=== PATIENT | female | born 1980 | race Caucasian/White ===

== ENCOUNTER → 2019-01-23 15:34 | Outpatient (CLI) | payer OTHER, SELFPAY ==
--- NOTE | 2019-01-23 | IMM_PTH ---
PATIENT: SANGEETA CARMONA LOC: [facility] U#:[id number] AGE/SX: 44/F ROOM: RE01/23/[address]: Dr. Nithin Alba MD : 1980 BED: DIS: SPEC #: [id number] RECD: 01/27/19 11:19 STATUS: DAISY MICHAEL #: [id number] GRACE: 01/23/19 00:[address]: Nithin Alba DEPT: IMMUNOHISTOCHEMISTRY RECD BY: Mariela Morgan ENTERED: 01/27/19 11:20 SP TYPE: IMMUNO OTHR DR: Dr. Navneet Burt MD Tissues: B - Stomach, NOS Procedures: H Pylori (initial) PHYSICIAN & INSTITUTION [place] [address] SPECIMEN INFORMATION: Tissue Source: B - Gastric biopsy Clinical Info: GERD, dyspepsia Specimen Number: [id number] CPT code: 61688 METHODOLOGY: Deparaffinized sections of prefer/formalin-fixed tissue or PAP/DQ stained slides are incubated with monoclonal/polyclonal antibodies/oligonucleotide probes. Localization is made via biotin free immunoperoxidase method. Appropriate controls are performed and reacted as expected. Results on target cell population are indicated in the following table: RESULTS: ANTIBODY / CLONE RESULT Block B H Pylori (polyclonal) negative These tests were developed and their performance characteristics determined by [facility]. They may not have been cleared or approved by the [place]. Food and Drug Administration. The FDA has determined that such clearance or approval is not necessary. INTERPRETATION: B. Gastric biopsy: Negative for Helicobacter pylori organisms. SJ:primitivo 01/27/19
--- NOTE | 2019-01-23 12:59 | EGD_PTH ---
PATIENT: SANGEETA CARMONA LOC: [facility] U#:[id number] AGE/SX: 44/F ROOM: RE01/23/[address]: Dr. Nithin Alba MD : 1980 BED: DIS: SPEC #: [id number] RECD: 01/23/19 15:33 STATUS: DAISY MICHAEL #: [id number] GRACE: 01/23/19 12:[address]: Nithin Alba DEPT: SURGICAL PATHOLOGY RECD BY: Moustapha Garcia ENTERED: 01/26/19 13:40 SP TYPE: EGD BIOPSY OT DR: Dr. Navneet Burt MD [facility] Tissues: A - Duodenum, NOS B - Gastric mucous membrane Procedures: Surgery Specimen Level IV HEADER OPERATION: EGD with biopsies PRE-OP DIAGNOSIS: GERD, dyspepsia TISSUE SUBMITTED: A - Duodenal biopsies, rule out celiac/Whipple's, B - Gastric biopsies, rule out gastritis MICROSCOPIC DIAGNOSIS A. Duodenal biopsy: Fragments of duodenal mucosa, no pathologic diagnosis. B. Gastric biopsy: Mild gastritis. See microscopic description and comment. LIZZIE:primitivo 01/27/19 COMMENT B. The results of immunohistochemistry for Helicobacter pylori will be reported separately ([id number]). MICROSCOPIC DESCRIPTION Slides are reviewed. B. The specimen shows fragments of gastric mucosa with chronic inflammatory cell infiltrates in the lamina propria consisting of lymphocytes and plasma cells, consistent with mild chronic gastritis. GROSS DESCRIPTION A - Received in fixative is one container labeled with the patient's name and designated duodenal biopsy. The specimen consists of multiple irregular fragments of light maynard soft tissue that in aggregate measure 1 x 0.5 x 0.1 cm. The specimen is totally submitted in one cassette. B - Received in fixative is one container labeled with the patient's name and designated gastric biopsy. The specimen consists of one irregular fragment of light maynard soft tissue that measures 0.6 x 0.4 x 0.1 cm. The specimen is totally submitted in one cassette. / LIZZIE:primitivo 01/26/19 TC:3 CPT: 20051 x2
== END ==
PROVIDERS: Family Provider Family Medicine; PCP Family Medicine; Referring Provider Internal Medicine Gastroenterology; Visit Provider Internal Medicine Gastroenterology
DX: K21.9 Gastro-esophageal reflux disease without esophagitis (principal)
CPT/HCPCS: 88305; 88342